=== PATIENT | male | born 1990 | race Caucasian/White ===

== ENCOUNTER 2019-07-02 12:15 | Emergency (ER) | payer OTHER ==
[~2019-07-02] VITALS: Ht 180.3 cm; Wt 77.1 kg
[2019-07-02] MEDS ORDERED: diphenhydrAMINE HCL 50 MG/ML VIAL IM ONE (12:30)
[2019-07-02] MEDS ORDERED: LORAZEPAM INJ 2 MG/ML VIAL IM ONE (12:30)
[2019-07-02] MEDS ORDERED: diphenhydrAMINE HCL 50 MG/ML VIAL ONE (12:33)
[2019-07-02] MEDS ORDERED: LORAZEPAM INJ 2 MG/ML VIAL ONE (12:34)
--- NOTE | 2019-07-02 13:27 | NUR ---
Patient lethargic aousable per report given Versed .Patient on monitor SR continue to monitor
--- NOTE | 2019-07-02 14:30 | NUR ---
Patient awake alert requesting to use the bathroom ,no agiation no hallucination he does follow command
--- NOTE | 2019-07-02 15:00 | NUR ---
Patient awake alert vitals stable road test noted able to ambulated no nausea no vomiting he denies pain or sob no hallucination agrees to follow up PMD in AM
--- NOTE | 2019-07-02 15:30 | NUR ---
Patient requesting for food asking 2 sandwich one to go he is alert and orreinted denies SI noted able to ambulated to bathroom and HW patient declined fdc @ this time he stated coming back to previous living arrangement he is awake and alert speaking in full sentences vitals stable
--- NOTE | 2019-07-02 15:35 | NUR ---
Patient noted able to ambulated no difficuties agrees to seePMDF in 1 days patient declined fdc and signed
[2019-07-02 15:40] VITALS: BP 123/78
== END 2019-07-02 15:41 | disposition home or self-care (01) ==
LOC: ER 12:20
DX: F19.10 Other psychoactive substance abuse, uncomplicated (principal); Z59.0 Homelessness
CPT/HCPCS: 96372 ×2; 99284; J1200; J2060